=== PATIENT | male | born 1975 | race Hispanic/Latino ===

== ENCOUNTER 2020-09-24 13:04 | Emergency (ER) | payer OTHER ==
[2020-09-24] MEDS ORDERED: ACETAMINOPHEN-CODEINE 300/30MG TAB ONE (14:19)
== END 2020-09-24 15:43 | disposition home or self-care (01) ==
LOC: EDBD 13:04 → EDH 13:04 → EEVIPCON 13:04 → EDH 15:43
DX: J06.9 Acute upper respiratory infection, unspecified (principal); Z20.822 Contact with and (suspected) exposure to COVID-19
CPT/HCPCS: 71045; 87426; 93005; 99285; U0003